=== PATIENT | female | born 1990 | race Caucasian/White ===

== ENCOUNTER → 2022-03-06 | Outpatient (CLI) | payer OTHER | LOC: M LAB 08:48 | PROVIDERS: ATTEND Nurse Practitioner Family | DX: S89.92XA Unspecified injury of left lower leg, initial encounter (principal) ==

== ENCOUNTER → 2022-03-31 | Outpatient (CLI) | payer OTHER ==
[2022-03-31 07:55] LABS: BASO # 0.1 10^3/uL (0.0-0.2); BASO % 0.9 % (0.0-1.0); EOS # 0.2 10^3/uL (0.0-0.5); EOS % 2.4 % (0.0-3.0); HEMATOCRIT 43.1 % (36.0-47.0); HEMOGLOBIN 13.7 g/dl (12.0-15.5); LYMPH # 2.4 10^3/uL (1.5-5.0); MEAN CORPUSCULAR HEMOGLOBIN 26.4 pg (27.0-33.0); MEAN CORPUSCULAR HGB CONC 31.8 g/dl (32.0-36.5); MEAN CORPUSCULAR VOLUME 83.2 fl (80.0-96.0); MONO # 0.4 10^3/uL (0.0-0.8); MONO % 6.1 % (2.0-8.0); NEUTROPHILS # 3.9 10^3/uL (1.5-8.5); PLATELET COUNT, AUTOMATED 294 10^3/uL (150-450); RED BLOOD COUNT 5.18 10^6/uL (4.00-5.40)
[2022-03-31 08:21] LABS: HEMOGLOBIN A1c 6.7 %
[2022-03-31 08:31] LABS: ALBUMIN 3.7 GM/DL (3.2-5.2); ALT/SGPT 26 U/L (12-78); BILIRUBIN,TOTAL 0.3 MG/DL (0.2-1.0); BLOOD UREA NITROGEN 12 MG/DL (7-18); CALCIUM LEVEL 9.3 MG/DL (8.5-10.1); CARBON DIOXIDE LEVEL 28 MEQ/L (21-32); CHLORIDE LEVEL 106 MEQ/L (98-107); CHOLESTEROL LEVEL 240 MG/DL (<200); CHOLESTEROL RISK RATIO 6.486 (<5); CREATININE FOR GFR 0.79 MG/DL (0.55-1.30); FREE T4 0.98 NG/DL (0.76-1.46); GLOMERULAR FILTRATION RATE > 60.0 (>60); GLUCOSE, FASTING 145 MG/DL (70-100); HDL CHOLESTEROL 37 MG/DL (>40); NON-HDL-C 203 MG/DL; POTASSIUM SERUM 4.4 MEQ/L (3.5-5.1); SODIUM LEVEL 138 MEQ/L (136-145); TOTAL PROTEIN 6.8 GM/DL (6.4-8.2); TRIGLYCERIDES LEVEL 423 MG/DL (<150)
[2022-03-31 09:41] LABS: FOLLICLE STIMULATING HORMONE 3.7 mIU/mL; LUTEINIZING HORMONE 1.5 mIU/mL; TOTAL 25(OH) VITAMIN D 23.9 NG/ML (30.0-100.0)
== END ==
LOC: M LAB 07:20
PROVIDERS: ATTEND Physician Assistant
DX: R73.01 Impaired fasting glucose (principal); Z13.220 Encounter for screening for lipoid disorders; Z13.29 Encounter for screening for other suspected endocrine disorder

== ENCOUNTER → 2022-07-26 | Outpatient (CLI) | payer OTHER ==
[2022-07-26 10:19] LABS: BASO % 0.6 % (0.0-1.0); EOS # 0.1 10^3/uL (0.0-0.5); EOS % 1.9 % (0.0-3.0); HEMATOCRIT 40.8 % (36.0-47.0); HEMOGLOBIN 13.6 g/dl (12.0-15.5); LYMPH # 2.1 10^3/uL (1.5-5.0); LYMPH % 30.9 % (24.0-44.0); MEAN CORPUSCULAR HEMOGLOBIN 27.8 pg (27.0-33.0); MEAN CORPUSCULAR HGB CONC 33.3 g/dl (32.0-36.5); MEAN CORPUSCULAR VOLUME 83.3 fl (80.0-96.0); MONO # 0.6 10^3/uL (0.0-0.8); MONO % 8.6 % (2.0-8.0); NEUTROPHILS # 3.9 10^3/uL (1.5-8.5); NEUTROPHILS % 57.4 % (36.0-66.0); PLATELET COUNT, AUTOMATED 310 10^3/uL (150-450); WHITE BLOOD COUNT 6.8 10^3/uL (4.0-10.0)
[2022-07-26 11:15] LABS: ALKALINE PHOSPHATASE 101 U/L (46-116); ALT/SGPT 32 U/L (7.0-40); AST/SGOT 30 U/L (<34); BILIRUBIN,TOTAL 0.3 MG/DL (0.3-1.2); BLOOD UREA NITROGEN 15 MG/DL (9-23); CALCIUM LEVEL 8.4 MG/DL (8.5-10.1); CARBON DIOXIDE LEVEL 28 MMOL/L (20-31); CHLORIDE LEVEL 106 MMOL/L (98-107); CHOLESTEROL LEVEL 151 MG/DL (<200); CREATININE FOR GFR 0.68 MG/DL (0.55-1.30); GLOMERULAR FILTRATION RATE > 60.0 (>60); GLUCOSE, FASTING 99 MG/DL (60-100); HDL CHOLESTEROL 30.8 MG/DL (>40); LDL CHOLESTEROL 79.6 MG/DL (<100); NON-HDL-C 120 MG/DL; POTASSIUM SERUM 4.5 MMOL/L (3.5-5.1); SODIUM LEVEL 141 MMOL/L (136-145); TOTAL PROTEIN 6.6 G/DL (5.7-8.2); TRIGLYCERIDES LEVEL 203 MG/DL (<150)
[2022-07-26 11:25] LABS: HEMOGLOBIN A1c 6.3 % (4.0-6.0)
== END ==
LOC: M WUC 08:32
PROVIDERS: ATTEND Physician Assistant
DX: E11.9 Type 2 diabetes mellitus without complications (principal)

== ENCOUNTER → 2023-04-07 | Outpatient (REF) | payer OTHER | LOC: M LAB REF 17:30 | PROVIDERS: ATTEND Physician Assistant | DX: J01.90 Acute sinusitis, unspecified (principal) ==

== ENCOUNTER → 2023-09-16 | Outpatient (CLI) | payer OTHER ==
[2023-09-16 07:09] LABS: BASO % 0.7 % (0.0-1.0); EOS # 0.2 10^3/uL (0.0-0.5); EOS % 2.5 % (0.0-3.0); HEMATOCRIT 40.7 % (36.0-47.0); HEMOGLOBIN 13.4 g/dl (12.0-15.5); LYMPH # 2.2 10^3/uL (1.5-5.0); MEAN CORPUSCULAR HGB CONC 32.9 g/dl (32.0-36.5); MEAN CORPUSCULAR VOLUME 81.9 fl (80.0-96.0); MONO # 0.4 10^3/uL (0.0-0.8); NEUTROPHILS # 3.3 10^3/uL (1.5-8.5); NEUTROPHILS % 54.6 % (36.0-66.0); PLATELET COUNT, AUTOMATED 300 10^3/uL (150-450); RED BLOOD COUNT 4.97 10^6/uL (4.00-5.40)
[2023-09-16 07:36] LABS: ALBUMIN 3.7 G/DL (3.2-5.2); ALKALINE PHOSPHATASE 90 U/L (46-116); ALT/SGPT 27 U/L (7.0-40); AST/SGOT 22 U/L (<34); BILIRUBIN,TOTAL 0.3 MG/DL (0.3-1.2); BLOOD UREA NITROGEN 16 MG/DL (9-23); CALCIUM LEVEL 9.1 MG/DL (8.5-10.1); CARBON DIOXIDE LEVEL 29 MMOL/L (20-31); CHLORIDE LEVEL 105 MMOL/L (98-107); CREATININE FOR GFR 0.75 MG/DL (0.55-1.30); GLOMERULAR FILTRATION RATE > 60.0 (>60); GLUCOSE, FASTING 113 MG/DL (60-100); POTASSIUM SERUM 4.6 MMOL/L (3.5-5.1); SODIUM LEVEL 138 MMOL/L (136-145); TOTAL PROTEIN 6.4 G/DL (5.7-8.2)
[2023-09-16 07:39] LABS: TOTAL 25(OH) VITAMIN D 25.4 NG/ML (20.0-100.0)
[2023-09-16 08:39] LABS: HEMOGLOBIN A1c 6.3 % (4.0-6.0)
[2023-09-16 10:32] LABS: CREATININE, URINE 84.9 MG/DL
[2023-09-16 10:33] LABS: MAU/CREAT RATIO 3.5 MCG/MG (0.0-30.0)
== END ==
LOC: M LAB 06:21
PROVIDERS: ATTEND Physician Assistant
DX: E11.9 Type 2 diabetes mellitus without complications (principal); E55.9 Vitamin D deficiency, unspecified

== ENCOUNTER → 2023-11-17 | Outpatient (REF) | payer OTHER | LOC: M LAB REF 16:54 | PROVIDERS: ATTEND Family Medicine | DX: N76.4 Abscess of vulva (principal) ==